=== PATIENT | male | born 1995 | race Caucasian/White ===

== ENCOUNTER 2016-12-30 02:29 | Emergency (ER) | payer BC, OTHER ==
[~2016-12-30] VITALS: Ht 182.9 cm; Wt 72.7 kg
[2016-12-30 02:35] VITALS: TEMP 97.1
[2016-12-30 05:54] VITALS: BP 107/68; PULSE 88
== END 2016-12-30 05:54 | disposition home or self-care (01) ==
LOC: COL.ER 02:29
DX: F10.129 Alcohol abuse with intoxication, unspecified (principal); Y90.7 Blood alcohol level of 200-239 mg/100 ml
CPT/HCPCS: J2405